=== PATIENT | male | born 1965 | race Caucasian/White ===

== ENCOUNTER → 2022-01-22 | Outpatient (CLI) | payer OTHER ==
--- NOTE | 2022-01-22 09:18 | XR ---
EXAMINATION TYPE: XR cervical spine comp DATE OF EXAM: 01/22/2022 TECHNIQUE: Frontal, lateral, oblique, and open mouth view of the cervical spine are obtained. HISTORY: M54.2, Z98.1, M51.9, R20.2 neck pain since surgery 15 years ago COMPARISON: None FINDINGS: The cervical spine is visualized in its entirety from C1 thru the top of T1 level, it is s traightened in alignment. The pre-vertebral soft tissue appears within normal limits. The C1-C2 art iculation is within normal limits on the open mouth view. Anterior fusion plate with artificial disc material at C3-C4 level and C6-C7 level is present. There is ossific fusion from the C3 vertebra thro ugh the C7 level. There is ossific fusion of the spinous processes from C4 through C6 level. Moderate disc space narrowing C7-T1 level is present. The oblique images appear within normal limits. Overlyi ng soft tissue is unremarkable. Impression: As above.
--- NOTE | 2022-01-22 09:24 | CTL ---
EXAMINATION TYPE: CT Low Dose Lung DATE OF EXAM ORDERED: 01/22/2022 HISTORY: Long-term tobacco use. Lung cancer screening CT DLP: 107.[address] CTDI: 3.1 mGy Automated exposure control for dose reduction was used. SCREENING VISIT: Baseline COMPARISON: None TECHNIQUE: Low dose computed tomography scan was performed through the chest at 1 mm thick sections a nd reconstructed images in multiple planes at 1 mm and [address] DIAGNOSTIC QUALITY: Satisfactory FINDINGS: LUNG NODULES: Present, detailed below: There is 4 mm benign-appearing calcified nodule or granuloma a nterior inferior right upper lobe axial image 132. No significant greater than 5 mm Noncalcified pulmonary nodules. LUNGS: COPD: Severity: Mild Fibrosis: Severity: Mild to moderate scattered Lymph nodes: Benign calcified subcentimeter right hilar and paratracheal lymph node. No abnormal grea ter than 1 cm noncalcified lymph nodes Other findings: None. RIGHT PLEURAL SPACE: Effusion: None Calcification: None Thickening: None Pneumothorax: None LEFT PLEURAL SPACE: Effusion: None Calcification: None Thickening: None Pneumothorax: None HEART: Heart Size: Normal Coronary Calcification: Mild to moderate Pericardial Effusion: None OTHER FINDINGS: Upper abdomen: None Bony thorax: Midthoracic spinal stimulator device. Partial visualization of surgical change in the ce rvical spine. Supraclavicular region: None Other: None IMPRESSION: No significant noncalcified pulmonary nodules. Evidence of old granulomatous disease. CT LUNG RAD AND CT CHEST RECOMMENDATION: Lung-Rad 2 Benign Appearance or Behavior: Continue annual sc reening with LDCT in 12 months. S Modifier (other clinically significant findings): None
== END | disposition home or self-care (01) ==
LOC: RADCTMAIN 08:37
PROVIDERS: ATTEND Family Medicine
DX: Z09 Encounter for follow-up examination after completed treatment for conditions other than malignant neoplasm (principal); Z87.891 Personal history of nicotine dependence
CPT/HCPCS: 71271; 72050

== ENCOUNTER → 2022-01-26 | Outpatient (CLI) | payer OTHER ==
--- NOTE | 2022-01-27 14:13 | US ---
EXAMINATION TYPE: US thyroid st tissue head/neck DATE OF EXAM: 01/26/2022 COMPARISON: Low-dose lung screening CT January 22, 2022 CLINICAL HISTORY: E039 ACQUIRED HYPOTHYROIDISM. GLAND SIZE: Right Lobe: 3.9 x 2.6 x 1.9 cm Overall Parenchyma: heterogenous Left Lobe: 3.0 x 1.0 x 1.5 cm Overall Parenchyma: heterogeneous Isthmus Thickness: 0.5 cm NODULES RIGHT: # of nodules measured on right: 0 LEFT: # of nodules measured on left: 0 ISTHMUS: # of nodules measured in the isthmus: 0 Bilateral neck scanned, no evidence of lymphadenopathy. Markedly heterogeneous somewhat small size thyroid without discrete solid or cystic nodule. IMPRESSION: As above.
--- NOTE | 2022-01-27 14:13 | US ---
EXAMINATION TYPE: US kidneys/renal and bladder DATE OF EXAM: 01/26/2022 COMPARISON: NONE CLINICAL HISTORY: [id number] ABN URINE CYTOLOGY. EXAM MEASUREMENTS: Right Kidney: 9.8 x 5.3 x 5.1cm Left Kidney: 10.5 x 5.4 x 4.4cm Right Kidney: 2 hyperechoic foci, probable stones measuring 0.3cm and 0.4cm Left Kidney: no masses or hydronephrosis Bladder: wnl There is no evidence for hydronephrosis at this point in time. O masses are identified. The urinary bladder is adequately distended. Bilateral ureteral jets are not seen. IMPRESSION: Possible tiny nonobstructing renal calculi bilaterally. Advise renal stone protocol CT fo llow-up to further evaluate.
== END | disposition home or self-care (01) ==
LOC: RADUSWWP 14:31
PROVIDERS: ATTEND Family Medicine
DX: E03.9 Hypothyroidism, unspecified (principal); R82.89 Other abnormal findings on cytological and histological examination of urine
CPT/HCPCS: 76536; 76770

== ENCOUNTER → 2022-04-15 | Outpatient (CLI) | payer OTHER ==
--- NOTE | 2022-04-15 11:09 | XR ---
EXAMINATION TYPE: XR KUB DATE OF EXAM: 04/15/2022 10:40 AM INDICATION: Patient age:Male; 56 years old; Reason for study: N20.0 Calculus-Kidney; COMPARISON: Kidney ultrasound 01/26/2022 TECHNIQUE: One radiographic view of the abdomen was obtained. FINDINGS: Nerve stimulator device present. There is fixation hardware of the L5 and transitional S1 v ertebrae's. No evidence acute fracture. No definitive evidence for renal calculus. Mild multilevel di sc degeneration changes. There is nonspecific bowel gas pattern. IMPRESSION: 1. Nonspecific bowel gas pattern without radiographic evidence for acute process. 2. No evidence for renal calculus.
== END | disposition home or self-care (01) ==
LOC: RADXRMAIN 10:27
PROVIDERS: ATTEND Urology
DX: N20.0 Calculus of kidney (principal)
CPT/HCPCS: 74018

== ENCOUNTER → 2022-05-12 | Outpatient (CLI) | payer OTHER ==
--- NOTE | 2022-05-12 16:04 | XR ---
EXAMINATION TYPE: XR thoracic spine 3 views, XR lumbosacral spine 5 views DATE OF EXAM: 05/12/2022 COMPARISON: NONE HISTORY: 56-year-old male chronic pain M542 [id number] M519 R202 FINDINGS: Thoracic spine: Partial visualized ACDF hardware. Spinal stimulator array centered along the mid thoracic spinal aram l. Smaller absent T12 ribs. All pedicles are visualized. There is mild degenerative disc disease and endplate spondylosis mid and lower thoracic spine. Vertebral body heights are preserved. Degenerative grade 1 anterolisthesis T10-T11. Facet arthropathy lower thoracic spine. ACF hardware at C3-C4 and l ikely C6-C7. Lumbar spine: There is interbody and left-sided lumbar fusion at L4-L5 with corresponding laminectomy. There appear s to be a transitional lumbosacral segment denoted as a sacralized L5. Moderate degenerative disc dis ease above the fusion at L3-L4. Facet arthropathy also above the fusion at L3-L4. Vertebral body heig hts are preserved and alignment is maintained. IMPRESSION: 1. Thoracic spine: Mild degenerative disc disease and endplate spondylosis mid to lower thoracic spin e and facet arthropathy. Degenerative grade 1 anterolisthesis T10-T11. No vertebral compression colla pse. 2. Lumbar spine: Interbody and left-sided lumbar fusion at L4-L5 with laminectomy. Transitional lumbo sacral segment denoted as a sacralized L5. Moderate spondylotic change above the fusion at L3-L4.
== END | disposition home or self-care (01) ==
LOC: RADXRMAIN 10:41
PROVIDERS: ATTEND Family Medicine
DX: M47.814 Spondylosis without myelopathy or radiculopathy, thoracic region (principal); M51.34 Other intervertebral disc degeneration, thoracic region; M43.16 Spondylolisthesis, lumbar region; Z98.1 Arthrodesis status
CPT/HCPCS: 72070; 72110

== ENCOUNTER → 2023-05-13 | Outpatient (CLI) | payer OTHER ==
--- NOTE | 2023-05-13 15:40 | CT ---
EXAMINATION TYPE: CT soft tissue neck w con DATE OF EXAM: 05/13/2023 COMPARISON: None HISTORY: Lump on neck marked by radiopaque BB. CT DLP: 380.6 mGycm CONTRAST: Patient injected with 62 ml mL of Isovue 300. TECHNIQUE: Axial images at 3 mm thick sections. Reconstructed images in the coronal plane and sagitt al plane are reviewed. FINDINGS: Limited CT sections are obtained the lung apices. The lung apices appear clear. CT neck: The torus tubarius and fossa of Rosenmuller are normal. Code Machine Operator spaces are normal. Para nasal sinuses and mastoid air cells are clear. Posterior to the sternocleidomastoid muscle is a 2.4 cm rounded density which correlates with the pat ient's palpable abnormality this has some mass effect on the adjacent jugular vein without obstructio n. A small lymph node is just superior. This is lateral to the carotid artery. This appears fairly we ll-circumscribed. An enlarged lymph node is favored within the differential. Parotid glands appear normal and symmetrical. Submandibular glands, are normal. Parapharyngeal spac es are normal. The hypopharynx appears within normal limits. Vocal cord level appear symmetrical. Thyroid as visualized is normal. Prior anterior cervical fusions are present. IMPRESSIONS: 1. 2.4 cm mass slightly hypodense center in the right neck deep to the sternocleidomastoid muscle. Fi nding correlates with the palpable abnormality and may be a lymph node. Metastasis should be consider ed. Additional workup is recommended.
== END | disposition home or self-care (01) ==
LOC: RADCTMAIN 14:08
PROVIDERS: ATTEND Family Medicine
DX: E03.9 Hypothyroidism, unspecified (principal); R22.1 Localized swelling, mass and lump, neck
CPT/HCPCS: 70491; Q9967

== ENCOUNTER → 2023-06-09 | Outpatient (CLI) | payer OTHER ==
--- NOTE | 2023-06-09 14:46 | CT ---
EXAMINATION TYPE: CT ChestAbdPelvis w con DATE OF EXAM: 06/09/2023 COMPARISON: None HISTORY: looking for source of neck mass CT DLP: 968.5 mGycm CONTRAST: CT scan of the chest, abdomen and pelvis is performed with Oral Contrast and with IV Contrast, patien t injected with 100 mL of Isovue 300. CT Chest: LUNGS: The lungs are clear and free of infiltrate or atelectasis. No pulmonary nodule or mass is det ected. No pleural effusion or CT evidence of interstitial lung disease. MEDIASTINUM: Thoracic aorta is of normal caliber. The heart is not enlarged. No evidence for media stinal mass or adenopathy. HILAR STRUCTURES: No evidence for mass. No hilar adenopathy is appreciated. OTHER: There is a subcutaneous mass measuring 2.1 cm subcutaneous tissues of the back just to the lef t of midline at the T1 level. This could reflect a sebaceous cyst over lesion of other etiology is no t excluded. CONTRAST CT ABDOMEN AND PELVIS FINDINGS: LIVER/GB: No calcified gallstones. There is evidence of hepatic steatosis. No space occupying hepa tic lesion. Biliary tree is of normal caliber. PANCREAS: No inflammation. No distinct mass. SPLEEN: No splenic enlargement. No lesion seen. ADRENALS: No nodule. No thickening. KIDNEYS/BLADDER: No hydronephrosis. No nephrolithiasis. No disctinct renal mass. BOWEL: Normal appendix. Normal bowel caliber. No inflammation. GENITAL ORGANS: No gross abnormality. LYMPH NODES: No greater than 1cm abdominal or pelvic lymph nodes are appreciated. AORTA: No significant abnormality. OSSEOUS STRUCTURES: Postoperative changes lower lumbar spine. Spinal stimulator centered at the level of the thoracic spine. OTHER: No significant additional abnormality is seen. IMPRESSION: 1. No evidence for mass of the chest abdomen or pelvis. 2. Subcutaneous nodule as discussed above
== END | disposition home or self-care (01) ==
LOC: RADCTMAIN 11:46
PROVIDERS: ATTEND Family Medicine
DX: R22.1 Localized swelling, mass and lump, neck (principal)
CPT/HCPCS: 71260; 74177; Q9967